=== PATIENT | male | born 1945 | race Hispanic/Latino ===

== ENCOUNTER 2017-12-25 12:41 | Outpatient (CLI) | payer MEDICARE, BC ==
[~2017-12-25 12:41] MED LIST: Gadobenate Dimeglumine 529 MG/1 ML (20ML VIAL) ONE
--- NOTE | 2017-12-25 15:09 | MRI ---
MR ANGIOGRAM OF THE [facility] [place]: HISTORY: Intracerebral hemorrhage. COMPARISON: None. TECHNIQUE: MR angiogram of the brain is performed in the axial plane utilizing 3D umip-ak-jaguor imaging. Maxim um-intensity projection images are submitted for interpretation. FINDINGS: Axial source images demonstrate hemorrhage in the right occipital parietal lobe as well as subdural b lood along the right temporal convexity. There is some mass effect upon the right occipital parietal lobe due to the aforementioned hemorrhage. Please refer to brain MRI for further detail. There is symmetric flow-related signal of the distal cervical and intracranial internal carotid arter ies. There is symmetric flow-related signal in the M1 segment. The right A1 segment is somewhat dim inutive. Left A1 segment is unremarkable. Proximal A2 segment and proximal MCA branches are unremar kable. Posterior circulation demonstrates codominant vertebral arteries. Both vertebral arteries supply a n ormal caliber basilar artery. Appropriate flow-related signal in the mid and distal basilar artery. There is decreased flow-related signal in the proximal basilar artery. Mild stenosis cannot be excl uded. Decreased flow-related signal may be technical in nature. The left and right P1 segments have symmetric flow-related signal. IMPRESSION: 1. Decreased flow-related signal in the proximal the proximal basilar artery which may be due to gilbert nosis or technical limitations. 2. Intracranial hemorrhage as detailed above. POS: [facility]
--- NOTE | 2017-12-25 15:17 | MRI ---
MRV HEAD WITH 3D VOLUME RENDERING: Date: 12/25/17 CLINICAL HISTORY: Intraparenchymal hemorrhage. FINDINGS: Incidental note of a large parenchymal hemorrhage of the right cerebral hemisphere. This is incomplet semaj assessed on the basis of this exam. The superior sagittal sinus is patent. Straight sinus is norm al in caliber. 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 The right transverse sinus is patent. There is focal, presumed flow-related defect at the area of tortuo sity of the right sigmoid sinus. Each internal jugular vein is grossly patent where visualized. Infer ior sagittal sinus reveals no obvious abnormality. IMPRESSION: 1. No acute process of the dural vein sinuses is seen. 2. Incidental note of hemorrhagic nidus within the right cerebral hemisphere. POS: [facility]
--- NOTE | 2017-12-25 15:25 | MRI ---
BRAIN MRI WITH AND WITHOUT CONTRAST: Date: 12/25/17 HISTORY: Follow-up intraparenchymal hemorrhage. COMPARISON: None. CORRELATION: Head CT report performed at [facility] on 11/26/17. TECHNIQUE: Brain MRI is performed with and without intravenous Gadolinium administration. Multisequential, multi planar imaging is performed. FINDINGS: There is evidence of hemosiderin deposition involving a hematoma centered in the right occipitopariet al region. There is central T2 and FLAIR hyperintensity suggesting components of liquefication. On th e postcontrast images, the degree of enhancement is difficult to appreciate given the intrinsic T1 hy perintensity along the periphery. This area of signal abnormality measures 4.3 cm mediolateral x 3.4 cm anteroposterior x 5.0 cm craniocaudal. Additional small areas of intrinsic T1 hyperintensity are a lso noted. There is some mass effect and sulcal effacement of the right occipitoparietal region and m ass effect upon the atria of the right lateral ventricle. No significant midline shift. No evidence o f intraventricular hemorrhage. There is associated vasogenic edema. The center of the liquified hematoma does restrict. No evidence of infarct. Central arterial flow-voids are maintained. No restricted diffusion. The previously noted decreased f low-void in the proximal vertebral artery does not have any demonstrating decreased diameter on the a xial T2-weighted sequences. Calvarium has a normal T1 marrow signal intensity. Midline brain parenchymal structures are unremarka ble. No obvious pathologic enhancement of the brain parenchyma. IMPRESSION: Presumed evolutionary changes of a hematoma centered in the right occipitoparietal region. There is s ome associated mass effect, sulcal effacement, and vasogenic edema without ivan herniation. Findings are presumed to be due to an evolving hematoma in the parenchyma. Etiology of the hematoma is uncert ain and may be due to a metastatic lesion versus vascular lesion. Hemorrhage from hypertension cannot be excluded. Follow-up imaging should be performed after the aforementioned hematoma completely reso lves. Results of study discussed with Dr. Klein [place] 12/25/17 at [address] hours. CODE CR. POS: [facility]
== END 2017-12-25 12:42 | disposition home or self-care (01) ==
LOC: SCSMRI 12:41
PROVIDERS: ATTEND Surgery
DX: I61.8 Other nontraumatic intracerebral hemorrhage (principal); I62.9 Nontraumatic intracranial hemorrhage, unspecified
CPT/HCPCS: 70544; 70553; 82565

== ENCOUNTER 2018-01-11 08:25 | Day surgery (SDC) | payer MEDICARE, BC ==
[2017-12-30 13:13] VITALS: BMI 26.4
[2018-01-11 08:47] LABS: #Basophils 0.1 thou/uL (0.0-0.2); #Eosinphils 0.1 thou/uL (0.0-0.7); #Lymphocytes 3.7 thou/uL (1.20-3.40); #Monocytes 0.6 thou/uL (0.11-0.59); #Neutrophils 3.4 thou/uL (1.40-6.50); %Basophils 0.8 % (0.0-1.0); %Eosinophils 1.8 % (0.0-10.0); %Lymphocytes 46.7 % (21.0-51.0); %Monocytes 7.2 % (0.0-10.0); %Neutrophils 43.5 % (42.0-75.0); Hemoglobin 14.3 g/dL (14.0-18.0); Mean Corpuscular HGB CONC 34.8 g/dL (32.0-36.0); Mean Corpuscular Hemoglobin 32.8 pg (27.0-31.0); Mean Corpuscular Volume 94.2 fl (80.0-94.0); Mean Platelet Volume 7.4 fL (7.4-10.4); Platelet Count 192 thou/uL (130-400); RBC Distribution Width 12.1 % (11.5-14.5); Red Blood Cell (RBC) Count 4.35 mill/uL (4.70-6.10); White Blood Cell (WBC) Count 7.9 thou/uL (4.8-10.8)
[2018-01-11 08:55] LABS: Prothrombin Time 13.6 SEC (12.0-14.7)
[2018-01-11 08:56] LABS: PTT 27.4 SEC (22.9-36.1)
[2018-01-11 09:36] VITALS: BP 129/74; TEMP 96.8
--- NOTE | 2018-01-11 12:48 | CT ---
CT GUIDED LEFT RENAL MASS BIOPSY: Date: 01-11-18 History: Patient has mass in central inferior left renal region seen on previous contrast enhanced CT . Technique: Noncontrast enhanced CT images obtained for CT guidance. There is a infrarenal abdominal aortic aneurysm seen. Maximum diameter measures approximately 3.6 cm. The left kidney was localized using CT guidance. The patient had difficulty cooperating. Multiple att empts were made to get the patient to breath consistently; however, each time the patient breathed di fferentially, changing the location of the left renal mass. The left renal lesion was not visible on the noncontrast enhanced CT. The left renal lesion was attempted to be localizing using CT guidance. The overlying skin was prepped and draped in the usual sterile manner. A 1% Lidocaine solution was us ed to anesthetize the overlying soft tissues. A small incision was made. An outer 18 gauge needle was placed through the left renal capsule in the expected location of the left renal lesion. Three 18 ga uge core biopsies obtained through the outer 17 gauge needle. Specimens sent to pathology. Post biops y a single gel foam pledget was introduced into the biopsy tract to assist with hemostasis. A small r etroperitoneal hematoma was noted after the biopsy. IMPRESSION: Successful left renal biopsy. Specimen is pending. POS: [facility]
== END 2018-01-11 12:40 | disposition home or self-care (01) ==
LOC: CT 08:25 → SPEC 12:40
PROVIDERS: ATTEND Urology
PROC: 0TB13ZX Excision of Left Kidney, Percutaneous Approach, Diagnostic (ICD-10-PCS; principal; 2018-01-11)
DX: C64.2 Malignant neoplasm of left kidney, except renal pelvis (principal); Z88.6 Allergy status to analgesic agent
CPT/HCPCS: 36415; 50200; 77002; 85025; 85610; 85730; 88305; 88333; 99152; 99153

== ENCOUNTER 2018-04-07 17:25 | Inpatient (IN) | payer MEDICARE, BC ==
[~2018-04-07 17:25] MED LIST changes: -Gadobenate Dimeglumine 529 MG/1 ML (20ML VIAL) ONE; +ISOVUE-370 76%-LOCM 1 ML ONE
[2018-04-07] MEDS ORDERED: traMADol HCl 50 MG TAB PO PRN (17:41)
[2018-04-07] MEDS ORDERED: Ondansetron HCl/PF 4 MG/2 ML Vial SLOW IVP PRN (17:41)
[2018-04-07] MEDS ORDERED: CEFAZOLIN/Water 2 GM/20 ML SYRINGE SLOW IVP SCH (17:45)
[2018-04-07] MEDS ORDERED: levETIRAcetam In NaCl (Iso-Os) 1,000 MG in Premix Bag 1 BAG IVPB SCH (17:45)
[2018-04-07 18:28] LABS: #Basophils 0.1 thou/uL (0.0-0.2); #Eosinphils 0.1 thou/uL (0.0-0.7); #Lymphocytes 3.6 thou/uL (1.20-3.40); #Monocytes 0.6 thou/uL (0.11-0.59); #Neutrophils 4.3 thou/uL (1.40-6.50); %Basophils 0.6 % (0.0-1.0); %Eosinophils 1.1 % (0.0-10.0); %Lymphocytes 41.7 % (21.0-51.0); %Monocytes 6.7 % (0.0-10.0); %Neutrophils 49.9 % (42.0-75.0); Hemoglobin 13.3 g/dL (14.0-18.0); Mean Corpuscular HGB CONC 34.3 g/dL (32.0-36.0); Mean Corpuscular Hemoglobin 32.2 pg (27.0-31.0); Mean Platelet Volume 7.4 fL (7.4-10.4); Platelet Count 217 thou/uL (130-400); RBC Distribution Width 11.7 % (11.5-14.5); Red Blood Cell (RBC) Count 4.13 mill/uL (4.70-6.10); White Blood Cell (WBC) Count 8.7 thou/uL (4.8-10.8)
[2018-04-07 18:36] LABS: INR-International Normal Ratio 1.1; Prothrombin Time 13.9 SEC (12.0-14.7)
[2018-04-07 18:49] LABS: ALT (SGPT) 23 U/L (8-55); AST (SGOT) 21 U/L (5-34); Albumin 4.1 g/dL (3.4-4.8); Alkaline Phosphatase 96 U/L (40-150); Anion Gap 13 mmol/L (10-20); BUN (Urea Nitrogen) 19 mg/dL (8.4-25.7); Bilirubin, Total 0.6 mg/dL (0.2-1.2); Calc. Creatinine Clearance 0 mL/min (70-130); Calcium 8.7 mg/dL (7.8-10.44); Carbon Dioxide 20 mmol/L (23-31); Chloride 108 mmol/L (98-107); Estimated GFR-MDRD 61; Globulin 3.4 g/dL (2.4-3.5); Glucose 132 mg/dL (83-110); Potassium 3.7 mmol/L (3.5-5.1); Protein, Total 7.5 g/dL (5.8-8.1); Sodium 137 mmol/L (136-145)
[2018-04-07] MEDS: Sodium Chloride 0.9% 1,000 ML IV SCH (18:57)
--- NOTE | 2018-04-07 20:57 | CT ---
CT HEAD WITH AND WITHOUT IV CONTRAST 04/07/18 HISTORY: Occipital hemorrhage, likely tumor. COMPARISON: MRI brain on 12/25/17. FINDINGS: There is increased density again seen in the right parietal and occipital lobe also noted on the prio r MRI examination and suggesting hemorrhage. There is adjacent vasogenic edema seen. these findings d o result in sulcal effacement as well as mass effect and effacement of the occipital horn of the righ t lateral ventricle. Given the presence of this finding since prior exam does suggest an underlying l esion such as possibility of a neoplastic process. Underlying vascular lesion is a differential consi deration as well. No additional areas of hemorrhage are seen. There is no acute cortical infarction. No midline shift is noted. Postcontrast imaging does not definitely delineate enhancement, although enhancement is limited due t o increased density hemorrhage in the right parieto-occipital region. No definitive vascular malforma tion can be delineated. A mucous retention cyst is noted in the left maxillary antrum. Mastoid air cells are clear. Calvarial structures are intact. IMPRESSION: 1. Hemorrhage in the right parieto-occipital lobe with adjacent vasogenic edema and mass effect in the right cerebral hemisphere including effacement on the occipital horn of the right lateral vent ricle. Etiology for the area of hemorrhage and vasogenic edema is unable to be determined on this exa m. However, findings were also present on MRI exam on 12/25/17 and findings are likely related to an un derlying lesion and probably neoplastic process. An underlying vascular malformation is a differentia l consideration. Enhancement in region of hemorrhage is not appreciated but evaluation is limited due to increased density of the hemorrhage. POS: [facility]
[2018-04-08] MEDS ORDERED: Lidocaine 1% (PF) 30 ML VIAL ONE (06:24)
[2018-04-08] MEDS ORDERED: Heparin 10,000 UNITS/1 ML VIAL ONE (06:41)
[2018-04-08] MEDS ORDERED: Nitroglycerin 50 MG/250 ML BOT 0 ML ONE (06:51)
[2018-04-08] MEDS ORDERED: Prevnar 13-Val Conj/PF 0.5 ML SYRINGE IM ONE (09:00)
[2018-04-08] MEDS ORDERED: Bacitracin Zinc Ointment 30 gm TUBE ONE (09:11)
[2018-04-08] MEDS ORDERED: Sodium Chloride 0.9% 10 ML ONE (09:11)
[2018-04-08] MEDS ORDERED: Thrombin 5000 UNITS/5 ML VIAL ONE (09:11)
[2018-04-08] MEDS ORDERED: CEFAZOLIN/Water 2 GM/20 ML SYRINGE ONE (09:51)
--- NOTE | 2018-04-08 10:03 | PRG ---
DATE OF SERVICE: 04/08/2018 Mr. Gao was admitted from the clinic yesterday for re-hemorrhage with concern of underlying neopl astic lesion to further evaluate for vascular abnormality. My colleague, Dr. Crockett performed a cereb ral angiogram this morning and no vascular abnormality was identified. Stereotactic CT without and w ith contrast of the brain demonstrates the aforementioned hematoma. He has a biopsy proven renal edgar l carcinoma, I am concerned that this is renal cell carcinoma. As such, I have recommended manuelio n to the operating room and this was discussed extensively yesterday with he and his family along wit h the risks and benefits. I would recommend hematoma evacuation and exploration with a lesion resect ion. He wishes that we proceed and there were no barriers to our discussion. DIAGNOSES: Right occipital hematoma with likely underlying renal cell carcinoma.
[2018-04-08] MEDS ORDERED: Fentanyl 100 MCG/2 ML VIAL ONE ×3 (10:25→14:40)
[2018-04-08] MEDS ORDERED: Lidocaine 0.5%/Epinephrine 1:200,000 50 ml Vial ONE (11:13)
[2018-04-08] MEDS: Sodium Chloride 0.9% 1,000 ML IV SCH ×2 (12:56→20:03)
[2018-04-08] MEDS ORDERED: hydrALAZINE 20 MG/ML VIAL ONE ×2 (13:06→16:47)
[2018-04-08] MEDS ORDERED: Promethazine HCl 25 MG/ML VIAL SLOW IVP PRN (13:06)
[2018-04-08] MEDS ORDERED: Ondansetron HCl/PF 4 MG/2 ML Vial IVP PRN (13:06)
[2018-04-08] MEDS ORDERED: HYDROmorphone 2 MG/ML VIAL SLOW IVP PRN (13:06)
[2018-04-08] MEDS ORDERED: Morphine Sulfate 2 MG/ML SYRINGE SLOW IVP PRN (13:06)
[2018-04-08] MEDS ORDERED: Promethazine HCl 25 MG/ML VIAL IM PRN (13:06)
--- NOTE | 2018-04-08 13:56 | OP ---
DATE OF PROCEDURE: 04/08/2018 OR: OR #12. WOUND TYPE: Type 1 wound. SURGEON: Andrés Klein M.D. HARBOUR MASTER: Piyush Chacon PA-C. PREPROCEDURE DIAGNOSES: Right occipital hematoma, possible neoplasm. POSTPROCEDURE DIAGNOSES: 1. Right occipital hematoma, possible neoplasm. 2. Possible vascular malformation. PROCEDURE: 1. Right occipital stereotactic craniotomy for hematoma and lesion resection. 2. Use of operative microscope for microdissection. DESCRIPTION OF PROCEDURE: After informed consent was obtained from the patient, the patient brought to OR 12. Proper patient pause and identification was carried out. He was placed under excellent ge neral endotracheal anesthesia and positioned supine on the OR table. He was intubated, again placed under general endotracheal anesthesia and positioned in the left lateral decubitus position and his h ead secured in the [place] estephania. Stereotactic registration then occurred and a linear incision wa s drawn out over the right occipital region. This area was sterilely cleansed, prepared, and draped. Proper patient pause and the identification was carried out. Local anesthetic and epinephrine was infiltrated for analgesia and hemostasis. Again, the cleansed and sterile cleansing, preparation and proper draping occurred. The wound was then opened with a combination of sharp, monopolar and blunt dissection and retractors placed. Craniotomy was formed and the dura opened, hemosiderin-stained br ain was identified. I then entered into the hematoma using stereotactic and gross visualization and when it went into the hematoma and drain this there was also a portion where it was solid and nodular , but stringy indicating perhaps vasculature involvement. This was resected in total all the way franklin k to white matter. His visual tracts were preserved. There was some surface of the brain that had a bnormal appearing vascularity and this was resected as well. Preliminary pathology was consistent wi th hematoma with vascular entrapment. Copious irrigation occurred throughout. The microscope was us ed for microdissection and resection. Hemostasis was maximized throughout. Again, copious irrigatio n occurred with two Valsalva maneuvers assured no recurrent hemorrhage. Copious irrigation occurred one more time. The dura was then closed and the bone reaffixed with titanium plates and screws. Vanc omycin powder was spread in the wound and the wound was closed in anatomic layers. The patient then emerged from anesthesia.
[2018-04-08] MEDS ORDERED: Glycopyrrolate 0.2 MG/ML 5 ML SYRINGE ONE (14:16)
[2018-04-08] MEDS ORDERED: PHENYLEPHRINE-NS 100 MCG/ML 10 ML SYRINGE ONE (14:16)
[2018-04-08] MEDS ORDERED: Dexamethasone 20 MG/5 ML VIAL ONE (14:16)
[2018-04-08] MEDS ORDERED: Ondansetron HCl/PF 4 MG/2 ML Vial ONE (14:16)
[2018-04-08] MEDS ORDERED: Lidocaine 1% PF 5 ML VIAL ONE (14:16)
[2018-04-08] MEDS ORDERED: Esmolol 100 MG/10 ML VIAL ONE (14:16)
[2018-04-08] MEDS ORDERED: PROPOFOL 200 MG/20 ML VIAL ONE (14:16)
[2018-04-08] MEDS ORDERED: Iopamidol 370 76% 100 ML VIAL ONE (15:45)
[2018-04-08] MEDS ORDERED: Dexamethasone 4 MG in Sodium Chloride 0.9% 50 ML IVPB SCH (19:00)
[2018-04-08] MEDS: Acetaminophen 650 MG/20.3 ML UDCUP PO PRN (20:02)
[2018-04-08] MEDS: hydrALAZINE 20 MG/ML VIAL SLOW IVP PRN ×2 (20:38→22:18)
[2018-04-08] MEDS: CEFAZOLIN/Water 2 GM/20 ML SYRINGE SLOW IVP SCH (20:45)
[2018-04-08] MEDS ORDERED: CEFAZOLIN 2 GM in Sodium Chloride 0.9% 100 ML IVPB SCH (22:00)
[2018-04-09] MEDS: Dexamethasone 4 MG in Sodium Chloride 0.9% 50 ML IVPB SCH ×5 (00:48→23:43)
[2018-04-09] MEDS: Sodium Chloride 0.9% 1,000 ML IV SCH ×3 (00:49→11:23)
[2018-04-09] MEDS: CEFAZOLIN/Water 2 GM/20 ML SYRINGE SLOW IVP SCH ×3 (03:28→17:32)
[2018-04-09] MEDS: hydrALAZINE 20 MG/ML VIAL SLOW IVP PRN (05:58)
[2018-04-09] MEDS: Pantoprazole 40 MG VIAL IVP SCH (08:34)
--- NOTE | 2018-04-09 09:33 | PRG ---
DATE OF SERVICE: 04/09/2018 Mr. Gao is postoperative day 1 from right-sided stereotactic craniotomy and hematoma and lesion e vacuation/resection. Neurologically, he is doing well. He has a left-sided visual field cut that is likely a bit worse compared to before surgery, not surprising, as he did have some return of functio n last night so I suspect this is related to edema. We will await pathology, transfer to the floor, remove his arterial line and his March catheter, initiate physical therapy. I anticipate a couple da ys in the hospital. He will be dismissed whenever he meets criteria with an 8-day Decadron taper and 1 week of prophylactic levetiracetam.
--- NOTE | 2018-04-09 10:58 | CT ---
PRELIMINARY REPORT/[facility]/EMERGENTY AFTER-HOURS PROCEDURE CT Head Without Intravenous Contrast EXAM DATE/TIME: Exam ordered 04/09/2018 4:29 AM CLINICAL HISTORY: 72 years old, male; Condition or disease; Other: Right occipital lobe hemorrage; Prior surgery; Surge ry date: Post-operative (0-2 days); Surgery type: Craniotomy; Patient HX: S/P right occipital lobe he morrage, craniotomy on 04/08 TECHNIQUE: Axial computed tomography images of the head/brain without intravenous contrast. COMPARISON: No relevant prior studies available. FINDINGS: Brain: There is trace hyperdensity overlying the RIGHT occipital lobe possibly representing small res idual hemorrhage. Hypoattenuation of the RIGHT occipital lobe correlates with history of injury. Midline shift: There is no midline shift. Ventricles: Normal. No ventriculomegaly. Bones/joints: There is further posterior craniotomy with foci of pneumocephalus within the surgical b ed as well as anteriorly along the RIGHT frontal convexity. No acute fracture. Soft tissues: Normal. Sinuses: Unremarkable as visualized. No acute sinusitis. Mastoid air cells: Unremarkable as visualized. No mastoid effusion. IMPRESSION: Post RIGHT occipital craniotomy with postsurgical changes as above. No midline shift. Thank you for allowing us to participate in the care of your patient. Dictated and Authenticated by: Angelo Blount MD 04/09/2018 5:53 AM Central Time ([place] & [place]) FINAL REPORT BRAIN CT WITHOUT IV CONTRAST: EMERGENCY AFTER HOURS EXAM: TIME: 4:30 a.m. DATE: 04/09/18. FINDINGS: Recent postoperative changes in the right occipital parietal region for evacuation for intraparenchym al blood with some encephalomalacic changes as well as some minimal intraparenchymal and subdural and subarachnoid air. Possible very tiny residual blood. No significant midline shift. POS: [facility]
[2018-04-09] MEDS: Acetaminophen 650 MG/20.3 ML UDCUP PO PRN (11:22)
--- NOTE | 2018-04-09 14:41 | CON ---
DATE OF CONSULTATION: 04/09/2018 REFERRING PHYSICIAN: Dr. Klein. REASON FOR CONSULTATION: Perioperative medical management. HISTORY OF PRESENT ILLNESS: This patient is a 72-year-old male who is generally healthy, who was [place] gnosed in November with a renal mass which apparently was confirmed to be renal cell carcinoma. The pat ient has had a stroke with concern for the possibility that this was related to metastatic renal cell carcinoma lesion. The patient ultimately underwent a surgical excision yesterday of the stroke bed and some nodular and get stringy components concerning for the possibility of metastatic lesion or po ssibly vascular lesion. Pathology is still pending. Postoperatively, the patient has done well. Of note, patient did have a diagnostic arteriogram performed by Dr. Crockett prior to his surgery yesterda y. The patient has been on prophylactic Keppra and has had no seizure activity. His only complaint is mild discomfort at his groin and a bit of a frontal headache. He is also very concerned about the fact that his blood pressure got up to 155 last evening. He had an episode of vomiting last night, but has been able to eat today without any difficulty thus far. He also complains of some chronic le ft peripheral vision deficits which apparently have been improving, but may have had a setback a bit after the surgery. PAST MEDICAL HISTORY: Largely negligible other than the biopsy of the renal cell carcinoma. The pat ient has not had significant surgical or medical history and takes no chronic medications. ALLERGIES: IBUPROFEN. REVIEW OF SYSTEMS: Essentially negative other than those things mentioned in history of present illn ess. The patient reports he is generally very irregular with bowel and bladder habits. Denied any o ther neurologic, musculoskeletal, ENT, endocrine, psychiatric, GI or cardiopulmonary symptoms. CURRENT HOSPITAL MEDICATIONS: Include p.r.n. Zofran, p.r.n. Tylenol, levetiracetam with Keppra 100 m g IV b.i.d., dexamethasone 4 mg IV q.6, hydralazine p.r.n., tramadol p.r.n., pantoprazole 40 mg IV da jaida. PHYSICAL EXAMINATION: VITAL SIGNS: Temperature 98.3, pulse 90, respirations 17, BP 129/64, O2 sat 95% on room air. GENERAL APPEARANCE: Patient is awake, alert, oriented, very pleasant and cooperative. He appears yo carson than his stated age. He has a cranial dressing in place. HEENT: His pupils are reactive. He has no OP lesions. He does have a left peripheral vision defici t bilaterally. He has normal central vision. NECK: Supple, symmetric. HEART: Regular rate and rhythm without murmurs, gallops or rubs. LUNGS: Clear to auscultation bilaterally with good chest wall expansion and air exchange. ABDOMEN: Flat, soft, nontender, nondistended, positive bowel sounds, no masses, no organomegaly. SKIN: Warm and dry. LABORATORY DATA: From the and only abnormalities are chloride of 108, CO2 20, glucose 132 and a nonfasting specimen. Hemoglobin was 13.3 IMAGING DATA: CT scan of the brain from today shows right occipital craniotomy with postsurgical pankaj nges with no midline shift with minimal intraparenchymal, subdural and subarachnoid air. ASSESSMENT AND PLAN: 1. This patient is postop excision of an intracranial lesion concerning for possible metastatic lars l cell carcinoma versus vascular abnormality. Surgery was performed yesterday and he is postop day # 1 today. Pathology is pending presently. The patient appears to be doing remarkably well postoperat ively. He has no significant complaints at this time. His vital signs are stable. He is stable on his current medication regimen. He is up and ambulating quite well without any difficulties and on p rophylactic Keppra. He is on a couple of medications such as Keppra and Protonix which could potenti ally be converted to p.o. now that he appears to be taking p.o., as well, but we will go ahead and al low him a little bit more time as he really just started doing that well today. 2. History of the renal cell carcinoma, stable. 3. Elevated blood pressure, x1. This may be secondary to some edema related to the surgical procedu re and therefore not indicating any intervention at this time. Subsequently, his blood pressure has been completely normal. I appreciate the opportunity to continue to follow this patient. We will follow along with you.
[2018-04-10] MEDS: CEFAZOLIN/Water 2 GM/20 ML SYRINGE SLOW IVP SCH ×2 (02:13→09:16)
[2018-04-10] MEDS: Sodium Chloride 0.9% 1,000 ML IV SCH (02:15)
[2018-04-10] MEDS: Dexamethasone 4 MG in Sodium Chloride 0.9% 50 ML IVPB SCH ×2 (05:11→12:53)
[2018-04-10] MEDS: Pantoprazole 40 MG VIAL IVP SCH (09:18)
[2018-04-10 12:27] VITALS: BP 138/68; TEMP 97.8
--- NOTE | 2018-04-10 15:26 | PDOC.PN ---
- Subjective Encounter Start Date: 04/10/18 Encounter Start Time: 08:00 Pt seen for followup re: hypertension. Denies chest pain, shortness of breath, fevers or chills. No nausea or vomiting. - Objective Resuscitation Status: Resuscitation Status FULL:Full Resuscitation MAR Reviewed: Yes Vital Signs & Weight: Vital Signs (12 hours) Temp Pulse Resp BP Pulse Ox 04/10/18 10:55 97.8 F 92 16 138/68 95 04/10/18 08:10 98 F 70 18 93 L 04/10/18 07:55 98 F 70 18 136/71 93 L 04/10/18 03:48 98 F 85 18 135/79 92 L Weight Weight 6.49 oz Most Recent Monitor Data Heart Rate from ECG 95 NIBP 135/72 NIBP BP-Mean 91 Respiration from ECG 19 SpO2 96 I&O: 04/09/18 04/10/18 04/11/18 06:59 06:59 06:59 Intake Total 1195 2185 Output Total 1325 2310 Balance -130 -125 Result Diagrams: 04/07/18 18:13 04/07/18 18:13 Additional Labs: Labs reviewed by me Phys Exam - Physical Examination Constitutional: NAD HEENT: moist MMs Neck: supple Respiratory: clear to auscultation bilateral Cardiovascular: RRR Gastrointestinal: soft Neurological: moves all 4 limbs Psychiatric: normal affect, A&O x 3 Dx/Plan (1) Hypertension Code(s): I10 - ESSENTIAL (PRIMARY) HYPERTENSION Status: Acute Comment: BP stable and controlled. Pt is under neurosurgery service, plan to discharge noted, will sign off. - Plan * . Review of Systems - Medications/Allergies Allergies/Adverse Reactions: Allergies Allergy/AdvReac Type Severity Reaction Status Date / Time ibuprofen AdvReac Nausea Verified 04/07/18 18:36
--- NOTE | 2018-04-14 13:53 | CCL ---
RADIOLOGY PROCEDURE NOTE: Date: 04/07/18 SURGEON: Albert Crockett M.D. CHURCH MUSICIAN: None. INDICATION: Hemorrhage. DIAGNOSIS: Intracerebral hemorrhage. ANESTHESIA: Local. PROCEDURE: Diagnostic angiography. TECHNIQUE: The patient was brought into the angiogram suite and placed on the table in the supine position. Both groins were prepped and draped in the usual sterile fashion. 1% lidocaine was used to inject the rig ht groin. A 5 [place] micropuncture set was used to gain access to the right common femoral artery. Us ing the Seldinger technique, a 5 [place] sheath was placed. A 5 [place] diagnostic catheter was passed over a [employer] guidewire and advanced into the aortic arch, where the right common carotid was select ively catheterized. An AP and lateral angiogram was performed. Catheter was then placed within the ve rtebral artery, where AP and lateral angiogram was performed. All catheters were then removed. Hemost asis was maintained with manual compression. The procedure came to an end without complication. IMPRESSION: The patient underwent successful angiography. Angiogram revealed no evidence for an AV malformation o r other vascular anomaly. There was no tumor blush. The procedure came to an end without known compli cation.
== END 2018-04-10 13:57 | disposition home or self-care (01) | DRG 23 ==
LOC: SURG A 17:25 → CCU 04-08 15:27 → SURG B 04-09 10:55
PROVIDERS: ADMIT Surgery; ATTEND Surgery
PROC: 00C70ZZ Extirpation of Matter from Cerebral Hemisphere, Open Approach (ICD-10-PCS; principal; 2018-04-08)
PROC: B318YZZ Fluoroscopy of Bilateral Internal Carotid Arteries using Other Contrast (ICD-10-PCS; 2018-04-08)
DX: I61.1 Nontraumatic intracerebral hemorrhage in hemisphere, cortical (principal); G93.6 Cerebral edema; I10 Essential (primary) hypertension; Z85.528 Personal history of other malignant neoplasm of kidney
CPT/HCPCS: 36215; 36216; 36226; 36228; 36415; 70450; 70470; 80053; 85025; 85610; 85730; 88307; 88313; 88325; 88331; 88341; 88342; 93005; 93010; A4216; C1713; C9113; G8978-GP-CJ; G8979-GP-CJ; G8980-GP-CJ; J0131; J0360; J1100; J1644; J1953; J2001; J2405; J2704; J3010; J3370; J3490; J7050

== ENCOUNTER 2019-06-09 08:54 | Outpatient (CLI) | payer MEDICARE, BC ==
--- NOTE | 2019-06-09 11:02 | MRI ---
BRAIN MRI WITH AND WITHOUT CONTRAST: Date: 06/09/2019 COMPARISON: 12/25/2017. HISTORY: Amyloid angiopathy, headaches. TECHNIQUE: Multiplanar multisequence MR imaging of the brain obtained with and without contrast. FINDINGS: The diffusion weighted imaging demonstrates no evidence for acute infarction. Prior examination demonstrated a large intra-axial hematoma in the parieto-occipital region on the ri ght. On today's examination the intraparenchymal hemorrhage has nearly completely resolved with minimal residual blooming artifact along the margins of the partially collapsed hematoma cavity. Ther e is cystic encephalomalacia in the parietal/occipital lobe on the right. There is ex vacuo hydrocephalus involving the atrium of the right lateral ventricle associated with interval volume los s. This examination demonstrates no evidence for acute hemorrhage. There is no midline shift or mass effect. Arterial flow voids at the axial level of the skull base appear unremarkable on the T2-weighted imagi ng. The postcontrast imaging demonstrates no abnormal enhancement within the brain parenchyma. IMPRESSION: Interval resolution of previously noted intra-axial hematoma in the right parieto-occipital region. S ignificant associated encephalomalacia is noted within the right parieto-occipital lobe. No new hemorrhage. No acute infarction. Transcribed Date/Time: 06/09/2019 11:34 AM
--- NOTE | 2019-06-09 11:05 | MRI ---
MRI OF LUMBAR SPINE: DATE: 06/09/2019 COMPARISON: None. HISTORY: Chronic back pain, lumbar stenosis. TECHNIQUE: Multiplanar multisequence MR imaging of the lumbar spine provided without contrast. FINDINGS: The sagittal STIR imaging demonstrates no focal area of osseous marrow edema. On the basis of 5 lumba r type vertebral bodies, the conus medullaris terminates at the T12 level. T12-L1: Unremarkable. L1-2: Unremarkable. L2-3: Mild bilateral facet hypertrophy. No significant central canal or neural foraminal stenosis. L3-4: There is disc space narrowing and disc desiccation with bilateral facet hypertrophy, right grea ter than left. No central canal stenosis. Mild right neural foraminal stenosis. No significant left neural foraminal stenosis. L4-5: There is disc space narrowing and disc desiccation. There is a broad based disc protrusion in t he foraminal region on the right causing a mild degree of right neural foraminal stenosis and mild right lateral recess stenosis. No significant central canal or left neural foraminal stenosis. L5-S1: Mild bilateral facet hypertrophy. Disc space narrowing and disc desiccation. No significant ce ntral canal or neural foraminal stenosis. The visualized retroperitoneal structures demonstrate no acute findings. There is probable aneurysmal dilatation of the abdominal aorta measuring up to 3.4 cm in transverse dimension. Correlation with CT examination advised. IMPRESSION: Lumbar spine degenerative change as detailed above. Probable infrarenal abdominal aortic aneurysm for which follow-up CT angiogram of the abdomen advised. CODE T Transcribed Date/Time: 06/09/2019 11:38 AM
== END 2019-06-09 08:55 | disposition home or self-care (01) ==
LOC: SCSMRI 08:54
PROVIDERS: ATTEND Surgery
DX: M48.061 Spinal stenosis, lumbar region without neurogenic claudication (principal); I68.0 Cerebral amyloid angiopathy; M54.5 Low back pain; R51 Headache; M47.816 Spondylosis without myelopathy or radiculopathy, lumbar region; I61.8 Other nontraumatic intracerebral hemorrhage; G93.89 Other specified disorders of brain
CPT/HCPCS: 70553; 72148; 82565

== ENCOUNTER 2019-08-09 13:10 | Outpatient (CLI) | payer MEDICARE, BC ==
--- NOTE | 2019-08-09 13:41 | RAD ---
RADIOGRAPH CHEST 2 VIEW: DATE: 08/09/2019 TIME: 1:21 PM HISTORY: 73-year-old male with pleural effusion COMPARISON: none FINDINGS: There is a right-sided pleural effusion occupying approximately a third of the volume of the right he mithoracic cavity, resulting in dense opacification of the underlying portions of right lower lobe and right middle lobe. Left lung is clear. No left pleural effusion. No cardiomegaly, pulmonary venou s engorgement, pulmonary edema, or pneumothorax. IMPRESSION: Moderate size right pleural effusion.
== END 2019-08-09 13:11 | disposition home or self-care (01) ==
LOC: RAD 13:10
PROVIDERS: ATTEND Thoracic Surgery (Cardiothoracic Vascular Surgery)
DX: J90 Pleural effusion, not elsewhere classified (principal)
CPT/HCPCS: 71046